=== PATIENT | male | born 1935 | race African-American/Black ===

== ENCOUNTER 2019-08-01 09:00 | Inpatient (IN) ==
[2019-08-01] MEDS ORDERED: SODIUM CHLORIDE 0.9% 1,000 ML IV STA (09:09)
[2019-08-01] MEDS ORDERED: ONDANSETRON 4 MG/2 ML VIAL ONE ×2 (10:14→10:16)
[2019-08-01] MEDS ORDERED: fentaNYL 100 MCG/2 ML VIAL ONE (10:15)
[2019-08-01] MEDS ORDERED: fentaNYL 100 MCG/2 ML VIAL IV STA (10:16)
[2019-08-01] MEDS ORDERED: ONDANSETRON 4 MG/2 ML VIAL IV STA (10:16)
[2019-08-01 10:20] LABS: Basophils # 0.1 10*3/uL (0.0-0.2); Basophils % 0.3 % (0.0-0.8); Eosinophils # 0.1 10*3/uL (0.0-0.87); Eosinophils % 0.4 % (0.00-10.9); Hematocrit 37.6 VOL% (42.0-52.0); Hemoglobin 12.4 GM/DL (14.0-18.0); Immature Granulocytes % 1.2 %; Immature Granulocytes Absolute 0.18 #; Lymphocytes # 1.2 10*3/uL (1.4-4.0); Lymphocytes % 7.9 % (21.2-54.2); Mean Corpuscular Volume 86.8 FL (87-102); Mean Platelet Volume 10.5 FL (9.6-12.0); Monocytes % 7.9 % (1.7-12.7); Neutrophils % 82.3 % (38.7-73.9); Platelet Count 400 T/CUMM (130-400); Red Blood Count 4.33 MC/CUMM (3.8-5.5)
[2019-08-01 10:25] LABS: PT Patient Result 11.1 SECS (9.6-12.2)
[2019-08-01 10:38] LABS: Alanine Aminotransferase 27 U/L (16-61); Albumin 3.6 G/DL (3.4-5.0); Alkaline Phosphatase 103 U/L (45-117); Aspartate Amino Transferase 21 U/L (0-37); Blood Urea Nitrogen 44 MG/DL (7-18); Calcium 9.7 MG/DL (8.5-10.1); Estimated Glom Filtration Rate 0 ML/MIN; Glucose 295 MG/DL (74-106); Osmolality,Calculated 291.1 MOS/KG (273-304); Total Protein 8.8 G/DL (6.4-8.3)
[2019-08-01 10:39] LABS: Hypochromasia Slight; Platelet Estimate Adequate
[2019-08-01] MEDS ORDERED: BISACODYL 5 MG TABLET PO PRN (11:23)
[2019-08-01] MEDS ORDERED: ONDANSETRON 4 MG/2 ML VIAL IV PRN (11:23)
[2019-08-01] MEDS ORDERED: DEXTROSE 50% 25 GM/50 ML VIAL IV PRN (11:26)
[2019-08-01] MEDS ORDERED: GLUCAGON 1 MG VIAL IM PRN (11:26)
[2019-08-01 12:12] LABS: Risk Ratio 4.67; VLDL CHOLESTEROL 22.8 MG/DL
[2019-08-01] MEDS: INSULIN REGULAR 100 UNIT/ML SUBCUT SCH ×3 (14:23→21:45)
[2019-08-01] MEDS: SODIUM CHLORIDE 0.9% 1,000 ML IV SCH ×2 (14:23→22:44)
[2019-08-01] MEDS: ENOXAPARIN 30 MG/0.3 ML SYRINGE SUBCUT SCH (14:23)
[2019-08-01] MEDS: oxyCODONE/ACETAMINOPHEN 5-325 MG TABLET PO PRN (15:53)
[2019-08-01 16:00] LABS: Apearance,Urine CLOUDY (Clear); Bacteria,Urine Moderate /HPF (Few); Bilirubin,Urine Negative (Negative); Blood, Urine Small mg/dL (Negative); Glucose,Urine (UA) Negative (Negative); Hyaline Casts,Urine 7 /LPF (0-3); Ketones,Urine Negative (Negative); Nitrite,Urine Negative (Negative); Protein,Urine Negative; RBC,Urine 4 /HPF (0-4); Squamous Epithelial Cell,Urine Occasional /HPF (0-10); Urine Specific Gravity 1.016 (1.001-1.035); WBC,Urine 37 /HPF (0-6)
[2019-08-01 16:01] LABS: Urine Color Dark Yellow (Yellow)
[2019-08-01 16:04] LABS: Barbiturates Screen,Urine Negative (Negative); Benzodiazepines Screen,Urine Negative (Negative); Cannabinoid Screen,Urine Negative (Negative); Opiate Screen,Urine Negative (Negative); Phencyclidine Screen,Urine Negative (Negative)
[2019-08-01] MEDS: MORPHINE 4 MG/1 ML VIAL IV PRN (17:14)
[2019-08-01] MEDS: CIPROFLOXACIN INJ 200 MG in PREMIX 1 EACH IV SCH (17:26)
[2019-08-01] MEDS: NITROFURANTOIN MACRO/MONO 100 MG CAPSULE PO SCH (21:45)
[2019-08-02 06:12] LABS: Calcium 6.7 MG/DL (8.5-10.1); Osmolality,Calculated 287.1 MOS/KG (273-304)
[2019-08-02] MEDS: SODIUM CHLORIDE 0.9% 1,000 ML IV SCH ×3 (06:32→22:53)
[2019-08-02] MEDS ORDERED: MAGNESIUM SULF RIDER 4 GM in PREMIX 1 EACH IV ONE (07:37)
[2019-08-02] MEDS ORDERED: CALCIUM GLUCONATE 2,000 MG in SODIUM CHLORIDE 0.9% 100 ML IV ONE (08:00)
[2019-08-02] MEDS ORDERED: SODIUM BICARB IV SCH (08:00)
[2019-08-02] MEDS ORDERED: STERILE WATER IV SCH (08:00)
[2019-08-02] MEDS ORDERED: SODIUM BICARBONATE 50 MEQ/50 ML VIAL IV ONE (08:18)
[2019-08-02] MEDS: INSULIN REGULAR 100 UNIT/ML SUBCUT SCH ×4 (08:55→22:51)
[2019-08-02] MEDS: POTASSIUM CHLORIDE 20 MEQ TABLET PO SCH ×2 (08:58→12:53)
[2019-08-02] MEDS: NITROFURANTOIN MACRO/MONO 100 MG CAPSULE PO SCH ×2 (08:58→22:50)
[2019-08-02] MEDS: amLODIPine 5 MG TABLET PO SCH (08:59)
[2019-08-02] MEDS: PANTOPRAZOLE 40 MG TABLET PO SCH (08:59)
[2019-08-02] MEDS: MORPHINE 4 MG/1 ML VIAL IV PRN (09:00)
[2019-08-02] MEDS: TAMSULOSIN 0.4 MG CAPSULE PO SCH (09:18)
[2019-08-02] MEDS: ASPIRIN EC 81 MG TABLET PO SCH (09:18)
[2019-08-02] MEDS: carvediloL 3.125 MG TABLET PO SCH ×2 (09:18→22:51)
[2019-08-02] MEDS: INSULIN GLARGINE 100 UNIT/ML SUBCUT SCH (09:18)
[2019-08-02] MEDS: DUTASTERIDE 0.5 MG CAPSULE PO SCH (09:18)
[2019-08-02] MEDS: LIDOCAINE 5% PATCH TRANSDERM SCH (11:37)
[2019-08-02] MEDS: ENOXAPARIN 30 MG/0.3 ML SYRINGE SUBCUT SCH (12:54)
[2019-08-02] MEDS: CIPROFLOXACIN INJ 200 MG in PREMIX 1 EACH IV SCH (12:54)
[2019-08-02 16:27] LABS: Calcium 9.6 MG/DL (8.5-10.1); Osmolality,Calculated 279.4 MOS/KG (273-304)
[2019-08-02] MEDS ORDERED: SODIUM POLYSTYRENE SULFATE 15 GM/60 ML BOTTLE PO STA (16:59)
[2019-08-02] MEDS ORDERED: ATORVASTATIN 40 MG TABLET PO SCH (21:00)
[2019-08-02] MEDS: oxyCODONE/ACETAMINOPHEN 5-325 MG TABLET PO PRN (22:50)
[2019-08-03] MEDS: CIPROFLOXACIN INJ 200 MG in PREMIX 1 EACH IV SCH (06:43)
[2019-08-03] MEDS: INSULIN REGULAR 100 UNIT/ML SUBCUT SCH ×2 (08:39→12:45)
[2019-08-03] MEDS: amLODIPine 5 MG TABLET PO SCH (08:40)
[2019-08-03] MEDS: ASPIRIN EC 81 MG TABLET PO SCH (08:40)
[2019-08-03] MEDS: DUTASTERIDE 0.5 MG CAPSULE PO SCH (08:40)
[2019-08-03] MEDS: INSULIN GLARGINE 100 UNIT/ML SUBCUT SCH (08:40)
[2019-08-03] MEDS: NITROFURANTOIN MACRO/MONO 100 MG CAPSULE PO SCH (08:41)
[2019-08-03] MEDS: carvediloL 3.125 MG TABLET PO SCH (08:41)
[2019-08-03] MEDS: PANTOPRAZOLE 40 MG TABLET PO SCH (08:41)
[2019-08-03] MEDS: TAMSULOSIN 0.4 MG CAPSULE PO SCH (08:42)
[2019-08-03 08:46] LABS: Calcium 9.1 MG/DL (8.5-10.1); Osmolality,Calculated 283.7 MOS/KG (273-304)
[2019-08-03 10:17] VITALS: BP 145/71
[2019-08-03] MEDS: LIDOCAINE 5% PATCH TRANSDERM SCH (11:42)
[2019-08-03] MEDS: ENOXAPARIN 30 MG/0.3 ML SYRINGE SUBCUT SCH (12:46)
== END 2019-08-03 12:50 | disposition home or self-care (01) | DRG 683 ==
LOC: EDUNIT# → EDBD → N.ED 09:00 → N.EDINP 09:00 → N.2W 12:43 → N.5E 08-02 17:32
PROVIDERS: ADMIT Family Medicine; ATTEND Family Medicine

== ENCOUNTER 2019-08-07 05:13 | Inpatient (IN) ==
[2019-08-07] MEDS ORDERED: VANCOMYCIN 1,000 MG VIAL ONE (05:54)
[2019-08-07] MEDS ORDERED: CLINDAMYCIN INJ 50 ML IV ONE (05:54)
[2019-08-07] MEDS ORDERED: LACTATED RINGERS 1,000 ML IV SCH (07:30)
[2019-08-07] MEDS ORDERED: GABAPENTIN 400 MG CAPSULE PO ONE (07:39)
[2019-08-07] MEDS ORDERED: FAMOTIDINE 20 MG TABLET PO ONE (07:39)
[2019-08-07] MEDS ORDERED: ACETAMINOPHEN 500 MG TABLET PO ONE (07:39)
[2019-08-07] MEDS ORDERED: GABAPENTIN 400 MG CAPSULE ONE (07:49)
[2019-08-07] MEDS ORDERED: ACETAMINOPHEN 500 MG TABLET ONE (07:49)
[2019-08-07] MEDS ORDERED: FAMOTIDINE 20 MG TABLET ONE (07:49)
[2019-08-07] MEDS ORDERED: BUPIVACAINE MPF 0.5% /EPI 30 ML VIAL ONE (07:56)
[2019-08-07] MEDS ORDERED: BUPIVACAINE SPINAL 0.75% 2 ML AMP SPINAL ONE (07:56)
[2019-08-07] MEDS ORDERED: DEXMEDETOMIDINE 200 MCG/2 ML VIAL ONE (07:56)
[2019-08-07] MEDS ORDERED: ONDANSETRON 4 MG/2 ML VIAL IV PRN (08:42)
[2019-08-07] MEDS ORDERED: GLUCAGON 1 MG VIAL IM PRN (08:42)
[2019-08-07] MEDS ORDERED: DEXTROSE 10% 250 ML BAG IV PRN (08:42)
[2019-08-07] MEDS ORDERED: MAGNESIUM HYDROXIDE SUSP 30 ML UDCUP PO PRN (08:42)
[2019-08-07] MEDS ORDERED: MORPHINE 4 MG/1 ML VIAL IV PRN ×2 (08:42)
[2019-08-07] MEDS ORDERED: BACITRACIN OINT 0.9 GM PACK TOP ONE (09:53)
[2019-08-07] MEDS ORDERED: PHENYLEPHRINE DRIP 20 MG/250 ML PREMIX IV ONE (10:44)
[2019-08-07] MEDS ORDERED: fentaNYL 100 MCG/2 ML VIAL ONE (10:44)
[2019-08-07] MEDS ORDERED: propofoL 200 MG/20 ML VIAL IV ONE (10:44)
[2019-08-07] MEDS ORDERED: MIDAZOLAM 2 MG/2 ML VIAL ONE (10:44)
[2019-08-07] MEDS ORDERED: ePHEDrine 50 MG/ML AMP ONE (10:44)
[2019-08-07] MEDS ORDERED: PHENYLEPHRINE 1 MG/10 ML SYRINGE IV ONE ×2 (10:44→10:45)
[2019-08-07] MEDS ORDERED: LACTATED RINGERS 1,000 ML IV ONE (10:45)
[2019-08-07] MEDS ORDERED: SODIUM CHLORIDE 0.9% 250 ML IV ONE (10:45)
[2019-08-07] MEDS ORDERED: LIDOCAINE 2% 5 ML VIAL ONE (10:45)
[2019-08-07] MEDS: DOCUSATE SODIUM 100 MG CAPSULE PO SCH ×2 (12:26→21:50)
[2019-08-07] MEDS: KETOROLAC 15 MG/1 ML VIAL IV SCH ×3 (12:27→21:51)
[2019-08-07] MEDS: INSULIN LISPRO 100 UNIT/ML SUBCUT SCH ×3 (12:27→21:50)
[2019-08-07] MEDS: LACTATED RINGERS 1,000 ML IV SCH ×2 (12:27→17:47)
[2019-08-07] MEDS ORDERED: ceFAZolin 2,000 MG in PREMIX 1 EACH IV SCH (12:43)
[2019-08-07] MEDS: CLINDAMYCIN INJ 900 MG in PREMIX 1 EACH IV SCH (17:46)
[2019-08-07] MEDS: ATORVASTATIN 40 MG TABLET PO SCH (21:49)
[2019-08-07] MEDS: NITROFURANTOIN MACRO/MONO 100 MG CAPSULE PO SCH (21:49)
[2019-08-07] MEDS: DUTASTERIDE 0.5 MG CAPSULE PO SCH (21:49)
[2019-08-07] MEDS: TAMSULOSIN 0.4 MG CAPSULE PO SCH (21:49)
[2019-08-07] MEDS: carvediloL 3.125 MG TABLET PO SCH (21:50)
[2019-08-08] MEDS: CLINDAMYCIN INJ 900 MG in PREMIX 1 EACH IV SCH ×3 (00:05→21:22)
[2019-08-08] MEDS: KETOROLAC 15 MG/1 ML VIAL IV SCH (03:54)
[2019-08-08 06:28] LABS: Basophils % 0.3 % (0.0-0.8); Eosinophils # 0.3 10*3/uL (0.0-0.87); Eosinophils % 2.8 % (0.00-10.9); Hematocrit 23.7 VOL% (42.0-52.0); Hemoglobin 7.7 GM/DL (14.0-18.0); Immature Granulocytes % 1.2 %; Immature Granulocytes Absolute 0.13 #; Lymphocytes # 1.5 10*3/uL (1.4-4.0); Lymphocytes % 14.3 % (21.2-54.2); Mean Corpuscular HGB Conc 32.5 GM/DL (32-36); Mean Corpuscular Volume 87.5 FL (87-102); Mean Platelet Volume 10.5 FL (9.6-12.0); Monocytes % 13.4 % (1.7-12.7); Platelet Count 350 T/CUMM (130-400); Red Blood Count 2.71 MC/CUMM (3.8-5.5); Red Cell Distribution Width 16.1 % (9.3-17.3); White Blood Count 10.6 T/CUMM (4-12)
[2019-08-08] MEDS ORDERED: SODIUM CHLORIDE 0.9% 1,000 ML IV PRN (06:37)
[2019-08-08] MEDS ORDERED: FUROSEMIDE 40 MG/4 ML VIAL IV PRN (06:37)
[2019-08-08 06:39] LABS: Calcium 8.5 MG/DL (8.5-10.1); Osmolality,Calculated 288.5 MOS/KG (273-304)
[2019-08-08] MEDS: INSULIN LISPRO 100 UNIT/ML SUBCUT SCH ×4 (09:27→21:22)
[2019-08-08] MEDS: DOCUSATE SODIUM 100 MG CAPSULE PO SCH ×2 (09:29→21:22)
[2019-08-08] MEDS: amLODIPine 5 MG TABLET PO SCH (09:29)
[2019-08-08] MEDS: CLOPIDOGREL 75 MG TABLET PO SCH (09:29)
[2019-08-08] MEDS: carvediloL 3.125 MG TABLET PO SCH ×2 (09:29→21:22)
[2019-08-08] MEDS: NITROFURANTOIN MACRO/MONO 100 MG CAPSULE PO SCH ×2 (09:30→21:22)
[2019-08-08] MEDS: INSULIN GLARGINE 100 UNIT/ML SUBCUT SCH (09:30)
[2019-08-08] MEDS: CELECOXIB 200 MG CAPSULE PO SCH (15:23)
[2019-08-08] MEDS ORDERED: oxyCODONE/ACETAMINOPHEN 5-325 MG TABLET PO PRN (17:11)
[2019-08-08] MEDS: LACTATED RINGERS 1,000 ML IV SCH (19:32)
[2019-08-08] MEDS: DUTASTERIDE 0.5 MG CAPSULE PO SCH (21:22)
[2019-08-08] MEDS: TAMSULOSIN 0.4 MG CAPSULE PO SCH (21:22)
[2019-08-08] MEDS: ATORVASTATIN 40 MG TABLET PO SCH (21:22)
[2019-08-08] MEDS: oxyCODONE/ACETAMINOPHEN 5-325 MG TABLET PO PRN (21:23)
[2019-08-09] MEDS: CLINDAMYCIN INJ 900 MG in PREMIX 1 EACH IV SCH ×3 (05:59→21:30)
[2019-08-09] MEDS: oxyCODONE/ACETAMINOPHEN 5-325 MG TABLET PO PRN ×2 (06:00→21:29)
[2019-08-09 07:22] LABS: Basophils % 0.2 % (0.0-0.8); Eosinophils # 0.4 10*3/uL (0.0-0.87); Eosinophils % 3.2 % (0.00-10.9); Hematocrit 26.1 VOL% (42.0-52.0); Hemoglobin 8.8 GM/DL (14.0-18.0); Immature Granulocytes % 1.6 %; Lymphocytes # 1.4 10*3/uL (1.4-4.0); Lymphocytes % 10.9 % (21.2-54.2); Mean Corpuscular HGB Conc 33.7 GM/DL (32-36); Mean Platelet Volume 10.1 FL (9.6-12.0); Monocytes % 9.8 % (1.7-12.7); Neutrophils % 74.3 % (38.7-73.9); Platelet Count 321 T/CUMM (130-400); Red Blood Count 3.07 MC/CUMM (3.8-5.5); Red Cell Distribution Width 16.2 % (9.3-17.3); White Blood Count 12.5 T/CUMM (4-12)
[2019-08-09] MEDS: INSULIN LISPRO 100 UNIT/ML SUBCUT SCH ×4 (09:33→21:30)
[2019-08-09] MEDS: CELECOXIB 200 MG CAPSULE PO SCH (10:32)
[2019-08-09] MEDS: NITROFURANTOIN MACRO/MONO 100 MG CAPSULE PO SCH ×2 (10:32→21:29)
[2019-08-09] MEDS: amLODIPine 5 MG TABLET PO SCH (10:33)
[2019-08-09] MEDS: CLOPIDOGREL 75 MG TABLET PO SCH (10:33)
[2019-08-09] MEDS: DOCUSATE SODIUM 100 MG CAPSULE PO SCH ×2 (10:35→21:29)
[2019-08-09] MEDS: carvediloL 3.125 MG TABLET PO SCH ×2 (10:35→21:29)
[2019-08-09] MEDS: INSULIN GLARGINE 100 UNIT/ML SUBCUT SCH (10:38)
[2019-08-09] MEDS ORDERED: TUBERCULIN SKIN TEST 0.1 ML SYRINGE INTRADERM ONE (11:00)
[2019-08-09] MEDS: DUTASTERIDE 0.5 MG CAPSULE PO SCH (21:29)
[2019-08-09] MEDS: TAMSULOSIN 0.4 MG CAPSULE PO SCH (21:29)
[2019-08-09] MEDS: ATORVASTATIN 40 MG TABLET PO SCH (21:29)
[2019-08-10] MEDS: CLINDAMYCIN INJ 900 MG in PREMIX 1 EACH IV SCH ×2 (05:02→14:22)
[2019-08-10 05:31] LABS: Basophils % 0.3 % (0.0-0.8); Eosinophils # 0.5 10*3/uL (0.0-0.87); Eosinophils % 3.8 % (0.00-10.9); Hematocrit 27.1 VOL% (42.0-52.0); Immature Granulocytes % 1.4 %; Immature Granulocytes Absolute 0.19 #; Lymphocytes # 1.8 10*3/uL (1.4-4.0); Lymphocytes % 13.2 % (21.2-54.2); Mean Corpuscular HGB Conc 33.2 GM/DL (32-36); Mean Corpuscular Volume 85.5 FL (87-102); Mean Platelet Volume 10.5 FL (9.6-12.0); Monocytes % 9.9 % (1.7-12.7); Neutrophils % 71.4 % (38.7-73.9); Platelet Count 370 T/CUMM (130-400); Red Blood Count 3.17 MC/CUMM (3.8-5.5); Red Cell Distribution Width 16.1 % (9.3-17.3); White Blood Count 13.5 T/CUMM (4-12)
[2019-08-10 08:08] VITALS: BP 187/80
[2019-08-10] MEDS: INSULIN LISPRO 100 UNIT/ML SUBCUT SCH ×2 (08:15→11:44)
[2019-08-10] MEDS: carvediloL 3.125 MG TABLET PO SCH (10:15)
[2019-08-10] MEDS: amLODIPine 5 MG TABLET PO SCH (10:15)
[2019-08-10] MEDS: INSULIN GLARGINE 100 UNIT/ML SUBCUT SCH (10:15)
[2019-08-10] MEDS: CLOPIDOGREL 75 MG TABLET PO SCH (10:15)
[2019-08-10] MEDS: NITROFURANTOIN MACRO/MONO 100 MG CAPSULE PO SCH (10:15)
[2019-08-10] MEDS: CELECOXIB 200 MG CAPSULE PO SCH (10:15)
[2019-08-10] MEDS: DOCUSATE SODIUM 100 MG CAPSULE PO SCH (10:15)
== END 2019-08-10 14:46 | disposition swing bed (61) | DRG 470 ==
LOC: N.OR 05:13 → N.SDSINP 05:14 → N.3E 11:33
PROVIDERS: ADMIT Orthopaedic Surgery; ATTEND Orthopaedic Surgery

== ENCOUNTER 2020-04-21 06:00 | Inpatient (IN) ==
[2020-04-21] MEDS ORDERED: VANCOMYCIN 1,000 MG VIAL ONE (06:03)
[2020-04-21] MEDS ORDERED: VANCOMYCIN INJ 1,000 MG in SODIUM CHLORIDE 0.9% 250 ML IV ONE (07:01)
[2020-04-21] MEDS ORDERED: ceFAZolin 2,000 MG in PREMIX 1 EACH IV ONE (07:02)
[2020-04-21] MEDS ORDERED: LACTATED RINGERS 1,000 ML IV SCH (07:30)
[2020-04-21] MEDS ORDERED: GABAPENTIN 400 MG CAPSULE PO ONE (07:38)
[2020-04-21] MEDS ORDERED: FAMOTIDINE 20 MG TABLET PO ONE (07:38)
[2020-04-21] MEDS ORDERED: ACETAMINOPHEN 500 MG TABLET PO ONE (07:38)
[2020-04-21] MEDS ORDERED: BACITRACIN OINT 0.9 GM PACK TOP ONE (09:21)
[2020-04-21] MEDS ORDERED: ZALEPLON 5 MG CAPSULE PO PRN (10:06)
[2020-04-21] MEDS ORDERED: MORPHINE 4 MG/1 ML VIAL IV PRN (10:06)
[2020-04-21] MEDS ORDERED: TRANEXAMIC ACID 1,000 MG/10 ML VIAL ONE (10:45)
[2020-04-21] MEDS ORDERED: BUPIVACAINE SPINAL 0.75% 2 ML AMP SPINAL ONE (11:59)
[2020-04-21] MEDS ORDERED: LIDOCAINE 2% 5 ML VIAL ONE (11:59)
[2020-04-21] MEDS ORDERED: fentaNYL 100 MCG/2 ML VIAL ONE (11:59)
[2020-04-21] MEDS ORDERED: propofoL 200 MG/20 ML VIAL IV ONE (11:59)
[2020-04-21] MEDS ORDERED: MIDAZOLAM 2 MG/2 ML VIAL ONE (12:00)
[2020-04-21] MEDS ORDERED: ROPIVACAINE 0.5% 30 ML VIAL ONE (12:00)
[2020-04-21] MEDS ORDERED: LABETALOL 100 MG/20 ML VIAL IV ONE (12:00)
[2020-04-21] MEDS ORDERED: LACTATED RINGERS 1,000 ML IV ONE (12:00)
[2020-04-21] MEDS ORDERED: ePHEDrine 50 MG/ML VIAL ONE (12:00)
[2020-04-21] MEDS: HYDROmorphone 2 MG/1 ML VIAL IV PRN ×4 (12:20→15:55)
[2020-04-21] MEDS ORDERED: HYDROmorphone 2 MG/1 ML VIAL ONE (12:20)
[2020-04-21] MEDS ORDERED: ONDANSETRON 4 MG/2 ML VIAL IV PRN (12:22)
[2020-04-21] MEDS: KETOROLAC 15 MG/1 ML VIAL IV SCH ×2 (13:35→22:01)
[2020-04-21] MEDS ORDERED: KETOROLAC 30 MG/1 ML VIAL ONE (13:35)
[2020-04-21] MEDS: LACTATED RINGERS 1,000 ML IV SCH (15:56)
[2020-04-21] MEDS: ceFAZolin 2,000 MG in PREMIX 1 EACH IV SCH (18:22)
[2020-04-21] MEDS ORDERED: DEXTROSE 50% 25 GM/50 ML VIAL IV PRN (18:42)
[2020-04-21] MEDS ORDERED: GLUCAGON 1 MG VIAL IM PRN (18:42)
[2020-04-21 19:07] LABS: Basophils % 0.3 % (0.0-0.8); Eosinophils # 0.2 10*3/uL (0.0-0.87); Eosinophils % 1.9 % (0.00-10.9); Hematocrit 34.2 VOL% (42.0-52.0); Hemoglobin 11.6 GM/DL (14.0-18.0); Immature Granulocytes % 0.3 %; Immature Granulocytes Absolute 0.03 #; Lymphocytes # 1.7 10*3/uL (1.4-4.0); Lymphocytes % 14.7 % (21.2-54.2); Mean Corpuscular HGB Conc 33.9 GM/DL (32-36); Mean Corpuscular Volume 87.5 FL (87-102); Mean Platelet Volume 10.2 FL (9.6-12.0); Neutrophils % 72.8 % (38.7-73.9); Platelet Count 236 T/CUMM (130-400); Red Blood Count 3.91 MC/CUMM (3.8-5.5); Red Cell Distribution Width 16.3 % (9.3-17.3); White Blood Count 11.4 T/CUMM (4-12)
[2020-04-21 19:29] LABS: Calcium 9.3 MG/DL (8.5-10.1); Osmolality,Calculated 280.7 MOS/KG (273-304)
[2020-04-21] MEDS: DUTASTERIDE 0.5 MG CAPSULE PO SCH (20:34)
[2020-04-21] MEDS: carvediloL 3.125 MG TABLET PO SCH (20:35)
[2020-04-21] MEDS: DOCUSATE SODIUM 100 MG CAPSULE PO SCH (20:35)
[2020-04-21] MEDS: TAMSULOSIN 0.4 MG CAPSULE PO SCH (20:35)
[2020-04-21] MEDS: ATORVASTATIN 40 MG TABLET PO SCH (20:35)
[2020-04-22] MEDS: ceFAZolin 2,000 MG in PREMIX 1 EACH IV SCH (03:17)
[2020-04-22] MEDS: KETOROLAC 15 MG/1 ML VIAL IV SCH ×2 (03:21→10:57)
[2020-04-22] MEDS: FONDAPARINUX 2.5 MG/0.5 ML SYRINGE SUBCUT SCH (05:32)
[2020-04-22 05:36] LABS: Basophils % 0.2 % (0.0-0.8); Eosinophils # 0.2 10*3/uL (0.0-0.87); Eosinophils % 2.1 % (0.00-10.9); Hematocrit 29.9 VOL% (42.0-52.0); Hemoglobin 10.3 GM/DL (14.0-18.0); Immature Granulocytes % 0.4 %; Immature Granulocytes Absolute 0.04 #; Lymphocytes # 1.2 10*3/uL (1.4-4.0); Lymphocytes % 12.3 % (21.2-54.2); Mean Corpuscular HGB Conc 34.4 GM/DL (32-36); Mean Corpuscular Volume 86.7 FL (87-102); Mean Platelet Volume 10.7 FL (9.6-12.0); Platelet Count 208 T/CUMM (130-400); Red Blood Count 3.45 MC/CUMM (3.8-5.5); Red Cell Distribution Width 15.9 % (9.3-17.3); White Blood Count 9.9 T/CUMM (4-12)
[2020-04-22] MEDS: LACTATED RINGERS 1,000 ML IV SCH (05:37)
[2020-04-22 05:59] LABS: Calcium 8.8 MG/DL (8.5-10.1); Osmolality,Calculated 278.7 MOS/KG (273-304)
[2020-04-22] MEDS: amLODIPine 5 MG TABLET PO SCH (10:55)
[2020-04-22] MEDS: DOCUSATE SODIUM 100 MG CAPSULE PO SCH ×2 (10:55→21:12)
[2020-04-22] MEDS: carvediloL 3.125 MG TABLET PO SCH ×2 (10:55→21:12)
[2020-04-22] MEDS: ISONIAZID 300 MG TABLET PO SCH (10:56)
[2020-04-22] MEDS: MORPHINE 4 MG/1 ML VIAL IV PRN ×2 (10:57→16:47)
[2020-04-22] MEDS: ONDANSETRON 4 MG/2 ML VIAL IV PRN ×2 (10:58→16:47)
[2020-04-22] MEDS ORDERED: TUBERCULIN SKIN TEST 0.1 ML SYRINGE INTRADERM ONE (16:40)
[2020-04-22] MEDS: TAMSULOSIN 0.4 MG CAPSULE PO SCH (21:12)
[2020-04-22] MEDS: ATORVASTATIN 40 MG TABLET PO SCH (21:12)
[2020-04-22] MEDS: DUTASTERIDE 0.5 MG CAPSULE PO SCH (21:12)
[2020-04-23 05:34] LABS: Basophils % 0.3 % (0.0-0.8); Eosinophils # 0.4 10*3/uL (0.0-0.87); Hematocrit 28.5 VOL% (42.0-52.0); Hemoglobin 9.7 GM/DL (14.0-18.0); Immature Granulocytes % 0.5 %; Immature Granulocytes Absolute 0.06 #; Lymphocytes # 1.6 10*3/uL (1.4-4.0); Lymphocytes % 13.1 % (21.2-54.2); Mean Corpuscular Volume 87.4 FL (87-102); Mean Platelet Volume 10.8 FL (9.6-12.0); Monocytes % 15.7 % (1.7-12.7); Neutrophils % 67.4 % (38.7-73.9); Platelet Count 197 T/CUMM (130-400); Red Blood Count 3.26 MC/CUMM (3.8-5.5); Red Cell Distribution Width 16.1 % (9.3-17.3); White Blood Count 11.9 T/CUMM (4-12)
[2020-04-23 06:06] LABS: Eosinophils 4 % (0-10); Lymphocytes 12 % (20-55); Platelet Estimate Adequate; Segmented Neutrophils 69 % (50-85); Total Cells Counted 100
[2020-04-23 06:07] LABS: Hypochromasia 1+; Ovalocytes Slight
[2020-04-23] MEDS: FONDAPARINUX 2.5 MG/0.5 ML SYRINGE SUBCUT SCH (06:40)
[2020-04-23] MEDS: LACTATED RINGERS 1,000 ML IV SCH (07:14)
[2020-04-23] MEDS: MAGNESIUM HYDROXIDE SUSP 30 ML UDCUP PO PRN ×2 (07:25→18:27)
[2020-04-23] MEDS: carvediloL 3.125 MG TABLET PO SCH ×2 (08:53→20:41)
[2020-04-23] MEDS: ISONIAZID 300 MG TABLET PO SCH (08:53)
[2020-04-23] MEDS: DOCUSATE SODIUM 100 MG CAPSULE PO SCH ×2 (08:53→20:41)
[2020-04-23] MEDS: amLODIPine 5 MG TABLET PO SCH (09:11)
[2020-04-23] MEDS: TAMSULOSIN 0.4 MG CAPSULE PO SCH (20:41)
[2020-04-23] MEDS: DUTASTERIDE 0.5 MG CAPSULE PO SCH (20:41)
[2020-04-23] MEDS: ATORVASTATIN 40 MG TABLET PO SCH (20:41)
[2020-04-24] MEDS: FONDAPARINUX 2.5 MG/0.5 ML SYRINGE SUBCUT SCH (05:04)
[2020-04-24 05:29] LABS: Basophils % 0.3 % (0.0-0.8); Eosinophils # 0.3 10*3/uL (0.0-0.87); Eosinophils % 2.4 % (0.00-10.9); Hematocrit 27.2 VOL% (42.0-52.0); Hemoglobin 9.3 GM/DL (14.0-18.0); Immature Granulocytes % 0.4 %; Immature Granulocytes Absolute 0.04 #; Lymphocytes # 1.6 10*3/uL (1.4-4.0); Mean Corpuscular HGB Conc 34.2 GM/DL (32-36); Mean Corpuscular Volume 86.6 FL (87-102); Mean Platelet Volume 10.9 FL (9.6-12.0); Monocytes % 12.6 % (1.7-12.7); Neutrophils % 69.3 % (38.7-73.9); Platelet Count 199 T/CUMM (130-400); Red Blood Count 3.14 MC/CUMM (3.8-5.5); Red Cell Distribution Width 16.3 % (9.3-17.3); White Blood Count 10.7 T/CUMM (4-12)
[2020-04-24] MEDS: MAGNESIUM HYDROXIDE SUSP 30 ML UDCUP PO PRN (06:44)
[2020-04-24] MEDS: ISONIAZID 300 MG TABLET PO SCH (10:06)
[2020-04-24] MEDS: DOCUSATE SODIUM 100 MG CAPSULE PO SCH (10:07)
[2020-04-24] MEDS: amLODIPine 5 MG TABLET PO SCH (10:07)
[2020-04-24] MEDS: carvediloL 3.125 MG TABLET PO SCH (10:07)
[2020-04-24] MEDS ORDERED: SODIUM PHOSPHATE ENEMA 133 ML BOTTLE RECTAL ONE (11:43)
[2020-04-24 16:48] VITALS: BP 133/65
== END 2020-04-24 16:20 | disposition swing bed (61) | DRG 470 ==
LOC: N.OR 06:00 → N.SDSINP 06:04 → N.3E 18:03
PROVIDERS: ADMIT Orthopaedic Surgery; ATTEND Orthopaedic Surgery